=== PATIENT | female | born 1975 | race Two or more races ===

== ENCOUNTER 2024-12-20 16:06 | Emergency (ER) | payer MEDICARE, MEDICAID, SELFPAY ==
--- NOTE | ~2024-12-20 | XR_ITS ---
EXAMINATION: XR LUMBOSACRAL SPINE CLINICAL INFORMATION: LBP, radiating to L leg COMPARISON: None available. TECHNIQUE: Three views of the lumbosacral spine. FINDINGS: Mild degenerative changes are present in the SI joints. There are 5 nonrib-bearing lumbar segment. Vertebral body height and alignment is preserved. Mild degenerative changes are present in the facets of the lower lumbar spine. XR/XR lumbar spine 2-3V IMPRESSION: Mild degenerative changes in the SI joints. Mild facet arthropathy. Electronically signed by: Lance Anderson MD 12/20/2024 04:59 PM EDT
[2024-12-20 16:27] VITALS: BP 139/75; PULSE 96; RESP 16; TEMP 36.1; O2SAT 100
--- NOTE | 2024-12-20 16:28 | ED_ITS ---
HPI - Back Pain/Injury General Chief Complaint: Back Pain/Injury Stated Complaint: Lower back pain Time Seen by Provider: 12/20/24 22:15 Source: patient Limitations: language barrier History of Present Illness ED Provider: Perla Layne PA-C HPI Narrative: 49-year-old female with a history of chronic back pain, morbid obesity who presents with the acute back pain. Patient states she developed pain after a [place] bus ride. Pain over we will lower back, primarily on the left, with radiation into the buttock and upper posterior thigh. Associated paresthesia at times. Denies weakness of lower extremities, urinary retention or bowel incontinence. Related Data Previous Rx's ?Medication ?Instructions ?Recorded ketorolac 10 mg tablet 10 mg PO Q6H PRN pain #20 ta bs 12/20/24 methocarbamol 750 mg tablet 1,500 mg (2 x 750 mg) PO Q 8H PRN 12/20/24 pain, moderate #24 tabs methylprednisolone 4 mg tablets in 4 mg PO QAM #21 ea 12/20/24 a dose pack (Medrol (Kumar)) Allergies Allergy/AdvReac Type Severity Reaction Status Date / Time Penicillins Allergy Anaphylaxis Verified 12/20/24 16:32 Review of Systems Review of Systems: Yes all other systems are reviewed and are negative Constitutional: Constitutional: Denies fatigue and Denies fever(s) Cardiovascular: Cardiovascular: Denies chest pain and Denies dyspnea Respiratory: Respiratory: Denies dyspnea Gastrointestinal: Gastrointestinal: Denies abdominal pain, Denies nausea and Denies vomiting Musculoskeletal: Musculoskeletal: Reports back pain, Denies muscle weakness, Denies numbness, Reports radiating pain into limb and Reports tingling Neurologic: Denies numbness and Reports tingling Endocrine: Endocrine: Denies fatigue [facility], [facility] Past Medical History Attestation statement: The following information was validated with the patient. Social History Social History Smoked in Last 30 Days: No Use of substances other than those prescribed or required for medical reasons: No Advance Directives: No Advance Directives Information Provided: No Do you have a plan to hurt others: No Plan Patient : No Physical Exam Vital Signs: Vital Signs: Last Vital Signs Temp 98.2 F 12/20/24 22:13 Pulse 71 12/20/24 22:13 Resp 16 12/20/24 22:13 BP 139/89 12/20/24 22:13 Pulse Ox 100 12/20/24 22:13 O2 Del Method Room Air 12/20/24 22:13 BMI result Body Mass Index 30.0 Const: Other: Alert Orientation/consciousness: patient oriented x3 Resp: Effort & Inspection: normal respiratory effort Cardio: Other: Normal peripheral perfusion Back/Spine/Pelvis: Other: No midline tenderness Skin: Other: Warm dry no rash Neuro: Other: Antalgic gait General: patient oriented x3, no focal motor deficits, CN's II-XI intact bilaterally and deep tendon reflexes 2+ bilaterally Extrem: Other: Strength 5/5 bilateral lower extremities Psych: Other: Cooperative Course Course Course Narrative: This is an RME performed by Javier Ng, MANAGER ADOBE: Additional HPI, ROS, PE not included below will be deferred to primary provider. Patient is a 49-year-old female who presents emergency department for evaluation of back pain, acute on chronic, admits to having degenerative changes of the lower back. Reports that yesterday she was riding on a bus to and from [place] and had acute exacerbation of her low back pain. Unrelieved by her routine prescribed Percocet. Now is radiating to her left lower extremity which is a new finding for her, denies numbness or tingling. No bladder bowel dysfunction. No saddle paresthesia. Plan; XR lumbar spine, placed in waiting room pending bed availability for analgesia. Medications Administered Discontinued Medications Generic Name Dose Route Start Last Admin Trade Name Freq PRN Reason Stop Dose Admin Ketorolac Tromethamine 15 mg 12/20/24 22:31 12/20/24 22:53 Ketorolac Tromethamine 15 Mg/Ml Vial IM 12/20/24 22:32 15 mg ONCE ONE Administration Methocarbamol 1,500 mg 12/20/24 22:31 12/20/24 22:53 Methocarbamol 750 Mg Tablet PO 12/20/24 22:32 1,500 mg ONCE ONE Administration Prednisone 20 mg 12/20/24 22:31 12/20/24 22:53 Prednisone 20 Mg Tablet PO 12/20/24 22:32 20 mg ONCE ONE Administration Medical Decision Making Medical Decision Making MDM Narrative: 49-year-old female with a history of chronic back pain, morbid obesity who presents with the acute back pain. Patient states she developed pain after a long bus ride. Pain over we will lower back, primarily on the left, with radiation into the buttock and upper posterior thigh. Associated paresthesia at times. Denies weakness of lower extremities, urinary retention or bowel incontinence. Problem: Obesity, chronic back pain History: Per patient I have considered the following differential diagnoses: Lumbar strain, lumbar radiculopathy, cauda equina, compression fracture Plan: X-ray ordered from triage, she has arthritis. The patient has sciatica symptoms, she has no red flag signs symptoms concerning for cord compression. We will treat with anti-inflammatory and muscle relaxant I have independently reviewed the following tests: X-ray lumbar spine: XR/XR lumbar spine 2-3V IMPRESSION: Mild degenerative changes in the SI joints. Mild facet arthropathy. Discharge Plan Discharge Clinical Impression: Lumbar radiculopathy Patient Disposition: Home, Self-Care Instructions: Lumbar Radiculopathy (ED) Additional Instructions: You are being treated for lumbar radiculopathy. See home care instructions. Take the Medrol Dosepak as directed, this is a steroid taper, it has been used as an anti-inflammatory. Take it with food. Use the ketorolac as directed as well this is a 2nd anti-inflammatory, take it with food. Use the methocarbamol as needed for further pain, this is a muscle relaxant. This medication will cause drowsiness, do not drive or operate machinery while taking the medication. Follow up with your primary care provider as needed, you may require physical therapy as an outpatient. Prescriptions: New ketorolac 10 mg tablet 10 mg PO Q6H PRN (Reason: pain) Qty: 20 0RF Rx Instructions: maximum total duration of 5 days from all oral, intranasal, or parenteral formulations. The patient received an intramuscular dose of Toradol here in the emergency room methylprednisolone [Medrol (Kumar)] 4 mg tablets,dose pack 4 mg PO QAM Qty: 21 0RF Rx Instructions: Take per package instructions methocarbamol 750 mg tablet 1,500 mg PO Q8H PRN (Reason: pain, moderate) Qty: 24 0RF Print Language: Bengali
[2024-12-20 22:13] VITALS: BP 139/89; PULSE 71; RESP 16; TEMP 36.8; O2SAT 100
--- NOTE | 2024-12-20 22:54 | PC.NURSE ---
unable to scan med barcode for robaxin 1500mg. two 750mg tablets given charted in ,mar accordingly pt medicated according to mar
--- NOTE | 2024-12-20 22:57 | PC.NURSE ---
pt medicated per AUG. Injection tolerated well.
[2024-12-20 23:28] VITALS: BP 139/89; PULSE 71; RESP 16; TEMP 36.8; O2SAT 100
--- NOTE | 2024-12-20 23:28 | PC.NURSE ---
reviewed discharge instructions with pt, pt verbalized understanding, no sign of distress.
== END 2024-12-20 23:29 | disposition home or self-care (01) ==
PROVIDERS: Emergency Provider Emergency Medicine
DX: M54.16 Radiculopathy, lumbar region (principal); M54.50 Low back pain, unspecified
CPT/HCPCS: 72100; 96372; 99284; J1885

== ENCOUNTER → 2024-12-20 16:33 | Outpatient (BNV) | payer MEDICAID, SELFPAY | PROVIDERS: Visit Provider Radiology Diagnostic Radiology | DX: M54.50 Low back pain, unspecified (principal); M79.605 Pain in left leg | CPT/HCPCS: 72100 ==

== ENCOUNTER 2024-12-28 14:49 | Outpatient (AMB) | payer MEDICARE, MEDICAID, SELFPAY ==
--- NOTE | 2024-12-28 15:05 | MHC.OFFWIV ---
Intake Vital Signs 12/28/24 15:06 Height 5 ft 7 in Weight 196 lb BMI 30.7 BP 100/58 L Blood Pressure Location Rt brachial Position Sitting Pulse 85 Pulse Source Pulse Oximeter Temp 98.8 F Pulse Oximetry (%) 95 Oxygen Delivery Method Room Air Intake Visit Reasons: [employer] Injured LT pinky Intake Note: presents with left 5th finger pain and swelling, radiating pain down to wrist. 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 She states onset of pinky finger L hand injury while putting on pants She admits to jamming it She is L hand dominant Pain level is currently 0/10 at rest but pain worse with moving 9/10 and turning it makes worse Patient has not tried anything for it She admits to tingling down finger Hx of carpal tunnel surgery to that hand Denies chance Review of Systems Const Denies chills, Denies fever(s) and Denies weakness Musc Reports joint swelling, Denies numbness and Reports stiffness Skin/Breast Reports skin pain and Reports skin swelling Neuro Denies numbness and Denies weakness Physical Exam Vital Signs: Last Vital Signs Temp 98.8 F 12/28/24 15:06 Pulse 85 12/28/24 15:06 BP 100/58 L 12/28/24 15:06 Pulse Ox 95 12/28/24 15:06 Oxygen Delivery Method Room Air 12/28/24 15:06 BMI result Body Mass Index 30.7 General: Non-toxic, NAD. Speaking full sentences. Skin: Warm dry throughout. SLight edema to L 5th digit. No ecchymosis or erythema noted. Eye: EOMI Cardiac: Radial pulse intact LUE. Cap refill < 2seconds MSK: + ttp distal and mid phalanx L 5th digit. Minimal ttp proximal phalanx and MCP joint. No metacarpal bone ttp. No carpal bone ttp. Slight decreased flexion L 5th digit but full extension noted Neurology: Alert. No aphasia or facial droop. Gait without abnormality Psych: Good mood and affect Assessment & Plan Assessment & Plan (1) Finger sprain: Code(s): S63.619A - Unspecified sprain of unspecified finger, initial encounter Qualifiers: Encounter type: initial encounter Finger: little finger Laterality: left Sprain of finger site: other site Qualified Code(s): S63.697A - Other sprain of left little finger, initial encounter Plan: Patient seen and evaluated. I viewed xray without obvious fx noted Placed in finger splint and educated on care management such as ice elevation and ibuprofen Discussed that I would call her with any abnormal xray imaging results. Patient gave verbal understanding and had no additional questions or concerns at time of discharge All questions answered Orders: Orders XR finger LT min 2V Today S63.619A - Unspecified sprain of unspecified finger, initial encounter Coding Level of Care Code Est Pt Level 3 (95327) Diagnoses Sprain of other site of left little finger, initial encounter S63.697A Encounter type: initial encounter Finger: little finger Laterality: left Sprain of finger site: other site
[2024-12-28 15:06] VITALS: BP 100/58; PULSE 85; TEMP 37.1; O2SAT 95; BMI 30.7
== END 2024-12-28 16:40 | disposition home or self-care (01) ==
PROVIDERS: Visit Provider Physician Assistant
DX: S63.697A Other sprain of left little finger, initial encounter (principal)

== ENCOUNTER 2024-12-28 14:49 | Outpatient (REF) | payer MEDICARE, MEDICAID, SELFPAY ==
--- NOTE | ~2024-12-28 | XR_ITS ---
EXAMINATION: XR FINGER, LEFT CLINICAL INFORMATION: S63.619A - Unspecified sprain of unspecified finger, initial encounter COMPARISON: None available. TECHNIQUE: Three views of the left fifth digit. FINDINGS: The bones and soft tissues are normal. No fracture. Alignment is anatomic. Joint spaces are maintained. XR/XR finger LT min 2V IMPRESSION: Normal finger radiographs. Electronically signed by: Lennox Rosa MD 12/28/2024 03:58 PM EDT
== END 2024-12-28 14:50 | disposition home or self-care (01) ==
LOC: HO.HMGCX 14:49
PROVIDERS: Visit Provider Physician Assistant
DX: S63.697A Other sprain of left little finger, initial encounter (principal); W23.0XXA Caught, crushed, jammed, or pinched between moving objects, initial encounter; Y93.89 Activity, other specified
CPT/HCPCS: 73140; 99212

== ENCOUNTER → 2024-12-28 15:42 | Outpatient (BNV) | payer MEDICARE, MEDICAID, SELFPAY | PROVIDERS: Visit Provider Radiology Diagnostic Radiology | DX: S63.619A Unspecified sprain of unspecified finger, initial encounter (principal) | CPT/HCPCS: 73140 ==

== ENCOUNTER 2025-05-21 20:27 | Emergency (ER) | payer OTHER, SELFPAY ==
--- NOTE | ~2025-05-21 | CT_ITS ---
CLINICAL HISTORY: ams CT head without contrast Comparison: None provided. Findings: No intracranial mass, midline shift, hydrocephalus, or acute hemorrhage. Visualized paranasal sinuses and mastoid air cells appear clear. No acute skull fracture. Impression: 1. No acute intracranial abnormality. No acute intracranial hemorrhage. This document has been electronically signed by: Esvin Davidson MD on 05/21/2025 22:55:36
[2025-05-21 20:33] VITALS: BP 125/79; PULSE 81; RESP 16; TEMP 37; O2SAT 99; BMI 30.1
--- NOTE | 2025-05-21 20:37 | ED.GENADULT ---
HPI - General Adult General Chief complaint: Headache Stated complaint: Headache, eye swelling Time Seen by Provider: 05/21/25 21:28 History of Present Illness HPI narrative: Patient is a 50-year-old female with a history of migraine headache. Complaining today with having headaches. Patient also claims that she had a history of seizure. The headache is on the left side. There is some itchiness in her eyes. There is no rash. There is no fever. She does have a history of diabetes. She is from home. There is no coughing or congestion. There is no trauma to the neck. History of high cholesterol. History of hypertension. Mild nausea. Light seems to make it worse. Related Data Home Medications ?Medication ?Instructions ?Recorded ?Confirmed albuterol sulfate 90 mcg/actuation inhalation 12/28/24 aerosol inhaler (Ventolin HFA) amlodipine 5 mg tablet 5 mg PO DAILY 12/28/24 buspirone 10 mg tablet 10 mg PO BEDTIME 12/28/24 desvenlafaxine succinate 50 mg 50 mg PO BEDTIME 12/28/24 tablet,extended release 24 hr dulaglutide 0.75 mg/0.5 mL 0.75 mg subcut QWEEK 12/28/24 subcutaneous pen injector (Trulicity) fluticasone 500 mcg-salmeterol 50 1 ea inhalation BID 12/28/24 mcg/dose blistr powdr for inhalation (Advair Diskus) hydrochlorothiazide 25 mg tablet 25 mg PO DAILY 12/28/24 lidocaine 5 % topical patch 1 patch topical DAILY PRN mild pain 12/28/24 melatonin 5 mg tablet 10 mg PO BEDTIME 12/28/24 montelukast 10 mg tablet 10 mg PO QPM 12/28/24 rosuvastatin 40 mg tablet 40 mg PO DAILY 12/28/24 tezepelumab-ekko 210 mg/1.91 mL mg subcut 12/28/24 (110 mg/mL) subcutaneous pen injector (Parasspire) topiramate 25 mg tablet 75 mg PO BID 12/28/24 tramadol 50 mg tablet 50 mg PO Q6H PRN pain 12/28/24 umeclidinium 62.5 mcg/actuation 1 inh inhalation DAILY 12/28/24 blister powder for inhalation (Incruse Ellipta) zolpidem 10 mg tablet 10 mg PO BEDTIME insomnia 12/28/24 Previous Rx's ?Medication ?Instructions ?Recorded ketorolac 10 mg tablet 10 mg PO Q6H PRN pain #20 tabs 12/20/24 methocarbamol 750 mg tablet 1,500 mg (2 x 750 mg) PO Q8H PRN 12/20/24 pain, moderate #24 tabs methylprednisolone 4 mg tablets in 4 mg PO QAM #21 ea 12/20/24 a dose pack (Medrol (Kumar)) ibuprofen 400 mg tablet 400 mg PO Q6H PRN pain #20 tabs 05/22/25 ondansetron 4 mg disintegrating 4 mg PO TID PRN nausea and 05/22/25 tablet vomiting 5 days #10 tabs Allergies Allergy/AdvReac Type Severity Reaction Status Date / Time Penicillins Allergy Anaphylaxis Verified 05/21/25 20:40 gabapentin AdvReac Seizure Verified 05/21/25 20:40 Review of Systems Review of Systems: Positive headache on the left side Yes all other systems are reviewed and are negative [facility] Past Medical History Attestation statement: The following information was validated with the patient. Social History Social History Alcohol intake: never Smoked in Last 30 Days: Yes Use of substances other than those prescribed or required for medical reasons: No Advance Directives: No Advance Directives Information Provided: No Do you have a plan to hurt others: No Plan Patient : No Physical Exam ED Exam Exam: Appearance: Alert. Oriented X3. No acute distress. Eyes: Pupils equal, round and reactive to light. ENT: Pharynx normal. Neck: Normal inspection. Neck supple. No lymph nodes noted. No crepitus CVS: Normal heart rate and rhythm. Pulses normal. Normal S1 and S2 Respiratory: No respiratory distress. Breath sounds normal. No Wheezing. No rales Abdomen: Soft and nontender. No rigidity. No distention. good BS x4 Skin: Skin warm and dry. Normal skin color. Normal skin turgor. Extremities: No lower extremity edema. Neurovascular intact to all extremities. No Lacerations. No Rash Neuro: Oriented X 3. No motor deficit. No sensory deficit. Moving all extermities. No slurred speech Vital Signs: Vital Signs - 24 hr 05/21/25 20:33 05/21/25 22:10 Temperature 98.6 F 98.3 F Pulse Rate 81 78 Respiratory Rate 16 21 H Blood Pressure 125/79 121/79 Pulse Oximetry 99 99 Oxygen Delivery Method Room Air Room Air BMI result Body Mass Index 30.1 Course Course Course Narrative: This is a Rapid Medical Examination (RME) performed by Zeenat Lira PA-C in triage. Full HPI, ROS, assessment and treatment plan per primary provider in the Main ED. Hx: 50 yo F hx migraines here for eval of headache, L sided facial swelling, dizziness, nausea, feeling generally unwell x 2 days. Plan: labs, viral swabs Medications Administered Discontinued Medications Generic Name Dose Route Start Last Admin Trade Name Freq PRN Reason Stop Dose Admin Diphenhydramine HCl 50 mg 05/21/25 21:35 05/21/25 21:46 Diphenhydramine Hcl 50 Mg/Ml Vial IVPUSH 05/21/25 21:36 50 mg ONCE ONE Administration Fluorescein Sodium 1 strip 05/21/25 21:47 05/21/25 21:53 Fluorescein Sodium Strip EYE-BOTH 05/21/25 21:48 1 strip ONCE ONE Administration Potassium Chloride 10 meq in 100 mls @ 100 mls/hr 05/21/25 21:45 05/22/25 01:03 Potassium Chloride/H20 IV 05/21/25 23:44 Infused Q1H JULISA Infusion Sodium Chloride 1,000 mls @ 999 mls/hr 05/21/25 21:45 05/21/25 23:27 Ns IV 05/21/25 22:45 Infused .Q1H1M JULISA Infusion Ketorolac Tromethamine 15 mg 05/21/25 21:36 05/21/25 21:46 Ketorolac Tromethamine 15 Mg/Ml Vial IVPUSH 05/21/25 21:37 15 mg ONCE ONE Administration Metoclopramide HCl 10 mg 05/21/25 21:35 05/21/25 21:46 Metoclopramide Hcl 10 Mg/2 Ml Vial IVPUSH 05/21/25 21:36 10 mg ONCE ONE Administration Potassium Chloride 40 meq 05/21/25 21:35 05/21/25 21:47 Potassium Chloride Packet 20 Meq Packet PO 05/21/25 21:36 40 meq ONCE ONE Administration Tetracaine HCl 1 drop 05/21/25 21:48 05/21/25 21:53 Tetracaine Hcl/Pf 0.5% Oph Michelle 4 Ml Drops EYE-LEFT 05/21/25 21:49 1 drop ONCE ONE Administration Medical Decision Making Medical Decision Making [facility] Narrative: Patient's headache consistent with a migraine. Has a question history of bleed in the past. CT scan of the head is grossly negative there is no evidence of bleeding. I reviewed radiology's reading which was the same. Patient complaining of swelling to the left eyelid. Visual acuity is grossly intact. I stained the patient's eye there is no dendritic lesion noted. There is no corneal abrasion noted. Patient's face is symmetrical no signs of Skinner's palsy. Neurologically intact. Given migraine treatment with good relief of symptoms. Patient's potassium was 2.9. I repleted it will recheck potassium 1 more time. If it is negative will discharge home. I did not see any rashes on her face to suggest patient has shingles. Explained to patient that Rash can still developed. Shingles can appears. In stable condition. Patient's care was repleted will discharge patient home Differential Diagnosis Differential Diagnoses: The differential diagnosis associated with the presentation includes Migraine headache, shingles, intracranial bleed, mass Admission/Observation Consideration of admission/observation: Escalation of care including admission/observation considered Lab Data [facility] Lab Attestation statement: I reviewed the patient's lab results. 05/21/25 20:49 05/22/25 00:47 Labs: Lab Results 05/21/25 05/22/25 Range/Units 20:49 00:47 WBC 8.6 (4.8-10.8) X10*3/uL RBC 5.56 H (4.20-5.50) X10*6/uL Hgb 14.1 (12.0-16.0) g/dl Hct 44.3 (37.0-47.0) % MCV 79.7 L (80.0-98.0) fL MCH 25.4 L (27.0-33.0) pg MCHC 31.8 (31.0-35.0) g/dl RDW 15.0 (11.0-16.0) % Plt Count 330 (160-400) X10*3/uL MPV 8.8 L (9.4-12.3) fL Immature Gran % (Auto) 0.3 (0.0-0.4) % Neut % (Auto) 39.8 L (45-73) % Lymph % (Auto) 51.8 H (20-40) % [place] % (Auto) 6.2 (2-11) % Eos % (Auto) 1.2 (0-4) % Baso % (Auto) 0.7 (0-2) % Lymph # (Auto) 4.5 (1.2-4.9) X10*3/uL [place] # (Auto) 0.5 (0.1-1.2) X10*3/uL Eos # (Auto) 0.1 (0.0-0.4) X10*3/uL Baso # (Auto) 0.1 (0.0-0.2) X10*3/uL Abs Immat Gran (auto) 0.03 (0.00-0.03) X10*3/uL Absolute Neuts (auto) 3.4 (2.0-8.3) x10*3/uL Absolute Nucleated RBC 0.000 (0.0-0.012) X10*3/uL Nucleated RBC % (auto) 0.0 (0.0-0.2) /100WBC Sodium 144 142 (135-145) mmol/L Potassium 2.9 L* 3.6 D (3.3-5.1) mmol/L Chloride 107 111 H (96-108) mmol/L Carbon Dioxide 28 23 (22-29) mmol/L Anion Gap 12 12 (12-20) BUN 15 14 (9-16) mg/dL Creatinine 0.82 0.71 (0.5-1.4) mg/dL Estim Creat Clear Calc 91.0 105.0 Estimated GFR > 60 > 60 Random Glucose 89 84 (60-115) mg/dL Calcium 9.8 9.1 D (8.4-10.2) mg/dL Magnesium 2.1 (1.6-2.6) mg/dL Total Bilirubin 0.2 (0.0-1.0) mg/dL AST 18 (5-31) U/L ALT 21 (0-31) U/L Alkaline Phosphatase 67 (39-117) U/L Total Protein 8.0 (6.5-8.0) g/dL Albumin 4.8 (3.5-5.0) g/dL Influenza Type A (PCR) NEGATIVE (Negative) Influenza Type B (PCR) NEGATIVE (Negative) RSV RNA Qual (PCR) NEGATIVE (Negative) SARS-CoV-2 RNA (RT-PCR) NEGATIVE (Negative) Independent Interpretation I performed an independent interpretation of an: CT Scan (CT head negative for bleed) Radiology Impression Discussion of test interpretation with radiology: I have reviewed the radiologist's reading. External Record Review External record reviewed: Office record Chronic Conditions History of migraine Social Determinants Patient?s care significantly limited by Social Determinants of Health including: Problems related to primary support group Discharge Plan Discharge Clinical Impression: Migraine, Acute hypokalemia Instructions: Migraine Headache (ED), Potassium Content of Foods List (ED), Hypokalemia (ED) Prescriptions: New ibuprofen 400 mg tablet 400 mg PO Q6H PRN (Reason: pain) Qty: 20 0RF ondansetron 4 mg tablet,disintegrating 4 mg PO TID PRN (Reason: nausea and vomiting) 5 Days Qty: 10 0RF No Action ketorolac 10 mg tablet 10 mg PO Q6H PRN (Reason: pain) Qty: 20 0RF Rx Instructions: maximum total duration of 5 days from all oral, intranasal, or parenteral formulations. The patient received an intramuscular dose of Toradol here in the emergency room methylprednisolone [Medrol (Kumar)] 4 mg tablets,dose pack 4 mg PO QAM Qty: 21 0RF Rx Instructions: Take per package instructions methocarbamol 750 mg tablet 1,500 mg PO Q8H PRN (Reason: pain, moderate) Qty: 24 0RF topiramate 25 mg tablet 75 mg PO BID amlodipine 5 mg tablet 5 mg PO DAILY tramadol 50 mg tablet 50 mg PO Q6H PRN (Reason: pain) buspirone 10 mg tablet 10 mg PO BEDTIME lidocaine 5 % adhesive patch,medicated 1 patch topical DAILY PRN (Reason: mild pain) fluticasone propion-salmeterol [Advair Diskus] 500-50 mcg/dose blister with device 1 ea inhalation BID montelukast 10 mg tablet 10 mg PO QPM hydrochlorothiazide 25 mg tablet 25 mg PO DAILY zolpidem 10 mg tablet 10 mg PO BEDTIME albuterol sulfate [Ventolin HFA] 90 mcg/actuation HFA aerosol inhaler inhalation rosuvastatin 40 mg tablet 40 mg PO DAILY desvenlafaxine succinate 50 mg tablet extended release 24 hr 50 mg PO BEDTIME melatonin 5 mg tablet 10 mg PO BEDTIME Incruse Ellipta 62.5 mcg/actuation blister with device 1 inh inhalation DAILY Trulicity 0.75 mg/0.5 mL pen injector 0.75 mg subcut QWEEK Tezspire 210 mg/1.91 mL (110 mg/mL) pen injector subcut Referrals: Physician,Unknown J [Primary Care Provider, Medical] - 05/25/25 Print Language: Syriac
[2025-05-21 20:54] LABS: Hematocrit 44.3 % (37.0-47.0); Hemoglobin 14.1 g/dl (12.0-16.0); Imm Gran Abs Auto 0.03 X10*3/uL (0.00-0.03); Imm Gran Pct Auto 0.3 % (0.0-0.4); Lymphocytes Absolute Auto 4.5 X10*3/uL (1.2-4.9); MANUAL DIFF FLAG NO; Mean Corpuscular HGB Conc 31.8 g/dl (31.0-35.0); Mean Corpuscular Hemoglobin 25.4 pg (27.0-33.0); Mean Corpuscular Volume 79.7 fL (80.0-98.0); NRBC Abs Auto 0.000 X10*3/uL (0.0-0.012); NRBC Pct Auto 0.0 /100WBC (0.0-0.2); Platelet Count 330 X10*3/uL (160-400); Red Blood Count 5.56 X10*6/uL (4.20-5.50); White Blood Count 8.6 X10*3/uL (4.8-10.8)
[2025-05-21 21:12] LABS: Alanine Aminotransferase 21 U/L (0-31); Albumin Level 4.8 g/dL (3.5-5.0); Alkaline Phosphatase 67 U/L (39-117); Anion Gap 12 (12-20); Aspartate Amino Transferase 18 U/L (5-31); Blood Urea Nitrogen 15 mg/dL (9-16); Calcium 9.8 mg/dL (8.4-10.2); Carbon Dioxide 28 mmol/L (22-29); Chloride 107 mmol/L (96-108); Creatinine Clr Calc Pharmacy 91.0; Estimated Glomerular Filt Rate > 60; Magnesium 2.1 mg/dL (1.6-2.6); Potassium 2.9 mmol/L (3.3-5.1); Sodium 144 mmol/L (135-145); Total Protein 8.0 g/dL (6.5-8.0)
[2025-05-21 21:30] LABS: Resp Syncy Virus RNA Qual PCR NEGATIVE (Negative); SARS COV2 PCR INHOUSE NEGATIVE (Negative)
[2025-05-21] MEDS: Potassium Chloride/H20 10 MEQ/100 ML PIGGYBACK 100 MEQ IV ×2 (21:47→23:26)
[2025-05-21] MEDS: Potassium Chloride Packet 20 MEQ PACKET 40 MEQ PO (21:47)
[2025-05-21] MEDS: Tetracaine HCl/PF 0.5% Oph Sol 4 ML DROPS 1 DROP EYE-LEFT (21:53)
[2025-05-21] MEDS: Fluorescein Sodium STRIP 1 STRIP EYE-BOTH (21:53)
[2025-05-21 22:10] VITALS: BP 121/79; PULSE 78; RESP 21; TEMP 36.8; O2SAT 99
[2025-05-22 01:21] LABS: Anion Gap 12 (12-20); Blood Urea Nitrogen 14 mg/dL (9-16); Calcium 9.1 mg/dL (8.4-10.2); Carbon Dioxide 23 mmol/L (22-29); Chloride 111 mmol/L (96-108); Creatinine Clr Calc Pharmacy 105.0; Estimated Glomerular Filt Rate > 60; Potassium 3.6 mmol/L (3.3-5.1); Sodium 142 mmol/L (135-145)
--- NOTE | 2025-05-22 01:26 | PC.NURSE ---
pt refused visual acuity exam and reports that her vision issue is chronic and she is currently at her baseline. aware.
[2025-05-22 02:10] VITALS: BP 113/70; PULSE 66; RESP 16; TEMP 36.6; O2SAT 96
== END 2025-05-22 02:11 | disposition home or self-care (01) ==
PROVIDERS: Physician Assistant Medical; Emergency Provider Emergency Medicine Emergency Medical Services
DX: G43.909 Migraine, unspecified, not intractable, without status migrainosus (principal); E87.6 Hypokalemia; R41.82 Altered mental status, unspecified; R11.0 Nausea; Z03.818 Encounter for observation for suspected exposure to other biological agents ruled out; I10 Essential (primary) hypertension; E78.00 Pure hypercholesterolemia, unspecified; Z79.899 Other long term (current) drug therapy
CPT/HCPCS: 36415; 70450; 80048; 80053; 83735; 85025; 87637; 96361; 96365; 96366; 96375; 99284; 99285; J1200; J1885; J2765; J3480

== ENCOUNTER → 2025-05-21 21:47 | Outpatient (BNV) | payer OTHER, SELFPAY | PROVIDERS: Emergency Provider Emergency Medicine Emergency Medical Services; Visit Provider Radiology Diagnostic Radiology | DX: R41.82 Altered mental status, unspecified (principal) | CPT/HCPCS: 70450 ==